=== PATIENT | male | born 1980 | race Caucasian/White ===

== ENCOUNTER 2018-03-08 17:00 | Emergency (ER) | payer OTHER ==
[~2018-03-08] VITALS: Ht 175.3 cm; Wt 74.0 kg
[~2018-03-08 17:00] MED LIST: CHANTIX1 MG PO; LAMICTAL200 MG PO; NOHOMEMEDS; SUBOXONE PO; ZOLOFT100 MG PO
[2018-03-08] MEDS ORDERED: GABAPENTIN400 MG PO (17:26)
[2018-03-08 18:03] LABS: HEMATOCRIT 38.3 % (38.0-50.0); HEMOGLOBIN 13.8 G/DL (12.5-16.6); MCH 33.7 PG (29.0-34.0); MCV 93.6 FL (86-99); PLATELET COUNT 226 K/uL (156-360); RBC DIS.WIDTH-CV 11.9 % (11.8-14.6); RBC DIS.WIDTH-SD 41.8 % (39-53); RED BLOOD COUNT 4.09 M/uL (4.00-5.50)
[2018-03-08 18:20] LABS: CHLORIDE 106 mEq/L (99-109); POTASSIUM 3.9 mEq/L (3.7-5.4); SODIUM 141 mEq/L (136-147)
[2018-03-08 18:22] LABS: GLUCOSE 91 mg/dL (70-99)
[2018-03-08 18:26] LABS: GFR ESTIMATE (CALCULATED) > 59 mL/min/ (58.99-99999)
[2018-03-08 18:27] LABS: UREA NITROGEN (BUN) 14 mg/dL (9-23)
[2018-03-08 18:32] LABS: TROP-I INTERPRETATION NEGATIVE; TROPONIN-I < 0.01 ng/mL (0.0-0.30)
[2018-03-08] MEDS ORDERED: NAPROXEN500 MG PO (18:36)
[2018-03-08 19:02] VITALS: BP 93/60
== END 2018-03-08 19:09 | disposition home or self-care (01) ==
LOC: EME 17:00
PROVIDERS: Physician Assistant
DX: R07.89 Other chest pain (principal); V43.52XA Car driver injured in collision with other type car in traffic accident, initial encounter; Y92.410 Unspecified street and highway as the place of occurrence of the external cause; F32.9 Major depressive disorder, single episode, unspecified; F17.200 Nicotine dependence, unspecified, uncomplicated
CPT/HCPCS: 71046; 80048; 84484; 85027; 93005; 99281; 99285